=== PATIENT | male | born 1950 | race Caucasian/White ===

== ENCOUNTER 2018-02-04 13:35 | Observation (INO) | payer MEDICARE ==
[~2018-02-04] VITALS: Ht 165.1 cm; Wt 77.3 kg
[2018-02-04] MEDS ORDERED: DIPHENHYDRAMINE HCL 25 MG CAP ONE (14:47)
[2018-02-04] MEDS ORDERED: ALPRAZOLAM 0.5 MG TAB ONE (14:47)
[2018-02-04 14:59] VITALS: BP 167/82
[2018-02-04 15:00] LABS: BASOPHILS # (AUTO) 0.1 (0.0-0.1); BASOPHILS % 0.9 % (0.0-1.0); EOSINOPHILS # (AUTO) 0.2 (0.0-0.4); EOSINOPHILS % 1.9 % (0.0-6.0); HEMATOCRIT 43.3 % (38.2-49.6); LYMPHOCYTES % 23.1 % (18.0-39.1); MEAN CORPUSCULAR HEMOGLOBIN 31.1 pg (28-32); MEAN CORPUSCULAR HGB CONC 34.6 g/dL (31-35); MEAN CORPUSCULAR VOLUME 89.6 fL (81-99); MONOCYTES # (AUTO) 0.6 (0.2-0.8); MONOCYTES % 7.3 % (4.4-11.3); NEUTROPHILS # (AUTO) 5.6 (2.1-6.9); NEUTROPHILS % 66.4 % (38.7-80.0); PLATELET COUNT 225 x10e3/uL (140-360); RED BLOOD COUNT 4.83 x10e6/uL (4.3-5.7); RED CELL DISTRIBUTION WIDTH 13.1 % (11.7-14.4)
[2018-02-04 15:12] LABS: INR 0.88; PROTHROMBIN TIME 12.8 seconds (11.9-14.5)
[2018-02-04 15:18] LABS: ALANINE AMINOTRANSFERASE 37 IU/L (0-55); ALBUMIN 4.2 g/dL (3.5-5.0); ALBUMIN/GLOBULIN RATIO 1.2 (0.8-2.0); ALKALINE PHOSPHATASE 76 IU/L (40-150); ANION GAP 15.1 mmol/L (8-16); BLOOD UREA NITROGEN 11 mg/dL (7-26); BUN/CREATININE RATIO 13 (6-25); CALCIUM 9.9 mg/dL (8.4-10.2); CARBON DIOXIDE 24 mmol/L (22-29); CHLORIDE 101 mmol/L (98-107); CREATININE, SERUM 0.84 mg/dL (0.72-1.25); EST GLOMERULAR FILTRATION RATE > 60 ML/MIN (60-); GLUCOSE 96 mg/dL (74-118); POTASSIUM 4.1 mmol/L (3.5-5.1); SODIUM 136 mmol/L (136-145)
[2018-02-04] MEDS ORDERED: VERAPAMIL HCL 2.5 MG/ML 2 ML VIAL ONE (17:27)
[2018-02-04] MEDS ORDERED: FENTANYL CITRATE/PF 100MCG/2 ML INJ ONE (17:27)
[2018-02-04] MEDS ORDERED: MIDAZOLAM HCL 2 MG/2 ML VIAL ONE (17:27)
[2018-02-04] MEDS ORDERED: LIDOCAINE HCL 2% LOCAL 20 ML VIAL ONE (17:27)
[2018-02-04] MEDS ORDERED: IOPAMIDOL 370 MG/ML 200 ML INFUS..BTL INJ ONE ×2 (17:28→18:08)
[2018-02-04] MEDS ORDERED: SODIUM CHLORIDE 0.9% 1000ML 1,000 ML ONE (17:28)
[2018-02-04] MEDS ORDERED: HEPARIN SOD/SOD CHLORIDE 2,000 ML ONE (17:28)
[2018-02-04] MEDS ORDERED: EPTIFIBATIDE 10 ML ONE (18:11)
[2018-02-04] MEDS ORDERED: TICAGRELOR 90 MG TABLET ONE (18:14)
[2018-02-04] MEDS ORDERED: ASPIRIN 325 MG TAB ONE (18:24)
[2018-02-04] MEDS ORDERED: MORPHINE SULFATE 2 MG/ML SYR IV PRN (19:45)
[2018-02-04 20:00] VITALS: BP 131/66
[2018-02-04 20:07] VITALS: BP 167/82
--- NOTE | 2018-02-04 23:39 | Operative Report ---
DATE OF PROCEDURE: February 04, 2018 INDICATIONS: Coronary artery disease and unstable angina. PROCEDURES PERFORMED: 1. Left heart catheterization, selective coronary angiography. 2. Percutaneous transluminal coronary angioplasty and drug-eluting stent placement to the right coronary artery. 3. Deployment of right wrist transradial band. COMPLICATIONS: None. RECOMMENDATIONS: Dual antiplatelet therapy, staged intervention with atherectomy, and stent placement to the proximal left anterior descending artery. Access obtained in the right radial artery using ultrasound guidance. A 6-[place] sheath was placed. Diagnostic coronary angiogram revealed patent left main. Left anterior descending proximal 90%, mid 90%. Circumflex was small vessel, mild disease. Right coronary artery proximal 50%, mid and distal 80%. Right posterolateral artery, 1.5 mm, 70% stenosis. Decision was made to intervene on the right coronary artery. The patient received 8000 units of intravenous heparin and Integrilin as well as oral Brilinta for anticoagulation. The right coronary artery was cannulated using a JR4 6-[place] guiding catheter. A short Run-through wire was advanced across the lesion for support and pre-dilatation with 2.25 mm balloon was performed following which a single 3.0 x 34 mm Resolute [place] stent was deployed at 28 atmospheres. Excellent end result. Less than 10% residual stenosis. No complications. KEO-3 flow. Right wrist TR band applied. Patient observed in the hospital overnight, discharged home with recommendations for staged intervention in the left anterior descending artery. Job#: [id number] YAZMIN
[2018-02-05] VITALS: BP 143/73
--- NOTE | 2018-02-05 02:01 | NUR ---
Received patient from lab support service tech with TR band placed to right radial arm. Starting at 2029 I released 10 mL of air every 15 minutes till fully deflated. No bleeding noted. TR band was removed and a 2X2 was placed on the site covered in a tegaderm. As of 199 no bleeding noted from site. Capillary refill in right hand is immediate. Patient states no pain or discomfort.
[2018-02-05 05:09] VITALS: BP 136/70
[2018-02-05 05:22] LABS: BASOPHILS # (AUTO) 0.1 (0.0-0.1); BASOPHILS % 0.7 % (0.0-1.0); EOSINOPHILS # (AUTO) 0.2 (0.0-0.4); EOSINOPHILS % 2.5 % (0.0-6.0); HEMATOCRIT 43.3 % (38.2-49.6); HEMOGLOBIN 14.7 g/dL (14.0-18.0); LYMPHOCYTES # (AUTO) 1.5 (1.0-3.2); LYMPHOCYTES % 15.5 % (18.0-39.1); MEAN CORPUSCULAR HEMOGLOBIN 31.1 pg (28-32); MEAN CORPUSCULAR HGB CONC 33.9 g/dL (31-35); MEAN CORPUSCULAR VOLUME 91.5 fL (81-99); MONOCYTES # (AUTO) 0.7 (0.2-0.8); MONOCYTES % 7.1 % (4.4-11.3); NEUTROPHILS # (AUTO) 7.2 (2.1-6.9); NEUTROPHILS % 73.5 % (38.7-80.0); PLATELET COUNT 203 x10e3/uL (140-360); RED BLOOD COUNT 4.73 x10e6/uL (4.3-5.7); RED CELL DISTRIBUTION WIDTH 13.1 % (11.7-14.4)
[2018-02-05 05:49] LABS: ANION GAP 12.8 mmol/L (8-16); BLOOD UREA NITROGEN 12 mg/dL (7-26); BUN/CREATININE RATIO 13 (6-25); CALCIUM 9.3 mg/dL (8.4-10.2); CARBON DIOXIDE 25 mmol/L (22-29); CHLORIDE 104 mmol/L (98-107); CHOL/HDL RATIO 6.9 (3.9-4.7); CHOLESTEROL 193 MD/DL (0-199); CREATININE, SERUM 0.93 mg/dL (0.72-1.25); EST GLOMERULAR FILTRATION RATE > 60 ML/MIN (60-); GLUCOSE 101 mg/dL (74-118); HDL CHOLESTEROL 28 MG/DL (40-60); LDL CHOLESTEROL 110 MG/DL (60-130); POTASSIUM 4.8 mmol/L (3.5-5.1); SODIUM 137 mmol/L (136-145); TRIGLYCERIDES 276 MG/DL (0-149)
[2018-02-05 08:15] VITALS: BP 133/74
[2018-02-05] MEDS ORDERED: METOPROLOL SUCCINATE 25 MG TAB XL PO SCH (09:00)
[2018-02-05] MEDS ORDERED: TICAGRELOR 90 MG TABLET PO SCH (09:00)
[2018-02-05] MEDS ORDERED: ASPIRIN 325 MG TAB PO SCH (09:00)
--- NOTE | 2018-02-05 11:00 | NUR ---
MD AGEE, PT REQUESTING TO GO HOME STATES HE WAS ONLY SUPPOSE TO BE HERE ONE NIGHT AWAITING CALL BACK.
[2018-02-05 12:00] VITALS: BP 154/74
--- NOTE | 2018-02-05 14:38 | NUR ---
IV DC'D SECURED WITH 4X4 GAUZE AND TAPE. RX GIVEN EDUCATION AND F/U INSTRUCTIONS. PT DISCHARGED AT THIS TIME
[2018-02-05] MEDS ORDERED: ATORVASTATIN 20 MG TAB PO SCH (21:00)
[2018-02-25] MEDS ORDERED: BRILINTA90 MG PO (17:17)
[2018-02-25] MEDS ORDERED: CENTRUM SILVER1 EAC3 PO (17:17)
[2018-02-25] MEDS ORDERED: ACETAMINOPHEN325 M1 PO (17:17)
[2018-02-25] MEDS ORDERED: ATORVASTATIN CA40 MG PO (17:17)
[2018-02-25] MEDS ORDERED: METOPROLOL PO (17:17)
[2018-02-25] MEDS ORDERED: ASPIR 8181 MG PO (17:17)
== END 2018-02-05 14:39 | disposition home or self-care (01) ==
LOC: CATH LAB 13:35 → IMCU 18:29 → INTOOBSV 18:29 → IMCU 19:34
PROVIDERS: ADMIT Internal Medicine Interventional Cardiology; ATTEND Internal Medicine Interventional Cardiology
DX: I25.110 Atherosclerotic heart disease of native coronary artery with unstable angina pectoris (principal)
CPT/HCPCS: 36415 ×2; 80048; 80053; 80061; 85025 ×2; 85610; 92928; 93458; C1769; C1874; C1887; G0378 ×2; J1327; J2001; J2250; J2270; J7030; Q9967; 93454

== ENCOUNTER 2018-03-04 11:21 | Inpatient (IN) | payer MEDICARE ==
[~2018-03-04] VITALS: Ht 165.1 cm; Wt 78.7 kg
[2018-03-04] VITALS (8 sets, daily range): BP systolic 115–138; BP diastolic 50–75
[~2018-03-04 11:21] MED LIST: ACETAMINOPHEN325 M1 PO; ASPIR 8181 MG PO; ATORVASTATIN CA40 MG PO; BRILINTA90 MG PO; CENTRUM SILVER1 EAC3 PO; METOPROLOL PO
[2018-03-04] MEDS ORDERED: VERAPAMIL HCL 2.5 MG/ML 2 ML VIAL ONE (14:52)
[2018-03-04] MEDS ORDERED: SODIUM CHLORIDE 0.9% 1000ML 1,000 ML ONE ×2 (14:53→14:56)
[2018-03-04] MEDS ORDERED: HEPARIN SOD/SOD CHLORIDE 2,000 ML ONE (14:53)
[2018-03-04] MEDS ORDERED: FENTANYL CITRATE/PF 100MCG/2 ML INJ ONE ×2 (14:53→16:38)
[2018-03-04] MEDS ORDERED: IOPAMIDOL 370 MG/ML 200 ML INFUS..BTL INJ ONE (14:53)
[2018-03-04] MEDS ORDERED: LIDOCAINE HCL 1% LOCAL INJ 20 ML VIAL ONE (14:53)
[2018-03-04] MEDS ORDERED: MIDAZOLAM HCL 2 MG/2 ML VIAL ONE ×2 (14:53→16:01)
[2018-03-04] MEDS ORDERED: HEPARIN SOD (PORCINE) 1000 UNIT/ML 30ML ONE (16:04)
[2018-03-04] MEDS ORDERED: NITROGLYCERIN/D5W 200 MCG/ML 250 ML ONE (16:04)
[2018-03-04] MEDS ORDERED: ONDANSETRON HCL INJ 2MG/ML 2ML 2 MG/ML VIAL ONE (16:28)
[2018-03-04] MEDS ORDERED: ATROPINE SULFATE 0.1 MG/ML 10ML SYR ONE (16:29)
[2018-03-04] MEDS ORDERED: ONDANSETRON HCL INJ 2MG/ML 2ML 2 MG/ML VIAL IV PRN (18:30)
[2018-03-04] MEDS: SODIUM CHLORIDE 0.9% 1000ML 1,000 ML IV SCH ×2 (19:00→22:34)
[2018-03-04] MEDS: MORPHINE SULFATE INJ 4 MG/ML INJ 1ML IV PRN (23:12)
--- NOTE | 2018-03-04 23:26 | Operative Report ---
DATE OF PROCEDURE: March 04, 2018 CARDIAC CATHETERIZATION REPORT INDICATION FOR PROCEDURE: Known severe CAD of the proximal and mid LAD, unstable angina. This is a staged PCI. PREPROCEDURE ASSESSMENT: Patient's medical history, social history, previous experience with anesthesia were reviewed prior to procedure. Patient was deemed to be an appropriate candidate for moderate sedation. The risks, the benefits, and alternatives of the procedure were explained prior to the procedure and informed consent was obtained as documented in the medical record. PROCEDURES PERFORMED: 1. Coronary angiography. 2. Atherectomy of the proximal and mid left anterior descending artery with Diamondback CSI device. 3. Percutaneous coronary intervention of the proximal and mid left anterior descending artery with Synergy 3.0 x 20 mm drug-eluting stent. PROCEDURE DETAILS: Patient was brought to the cardiac catheterization laboratory in a fasting state. Right wrist was prepped and draped in a sterile fashion. A 6-[place] slender sheath was inserted into the right radial artery using modified Seldinger technique for planned intervention of the LAD. A 6-[place] XB 3.5 guide was used, which provided excellent support. Lesion was wired using ChoICE PT floppy guidewire. This wire was then exchanged for a ViperWire 2.0 x 15 mm over the wire balloon. Atherectomy was performed using Diamondback 360 Coronary CSI device. This resulted in significant angiographic improvement of the calcified proximal and mid LAD lesions. Balloon angioplasty was subsequently performed using a 2.5 x 15 mm compliant balloon deployed at 14 atmospheres. Stenting was performed using a Synergy 3.0 x 20 mm drug-eluting stent. Multiple orthogonal views were taken to ensure that the stent did not extend into the left main coronary artery. This resulted in excellent angiographic result with no significant residual thrombus, dissection, or spasm. Case ended without any complications. SIGNIFICANT FINDINGS: 90% lesion of the proximal and mid LAD, severely calcified, status post successful atherectomy and PCI of the proximal LAD with drug-eluting stent x1. ESTIMATED BLOOD LOSS: 50 mL. COMPLICATIONS: None. SPECIMEN REMOVED: None. IMPLANTS: Drug-eluting stent x1 as described above. FINAL RECOMMENDATIONS: 1. Continue dual antiplatelet therapy with aspirin 81 mg and ticagrelor 90 mg b.i.d. for at least 1 year or preferably longer, followed by aspirin 81 mg daily for life. 2. Continue optimal medical therapy and risk factor control. 3. Follow up with primary software administrator in clinic 1 week post discharge. Job#: [id number]
[2018-03-05] VITALS (21 sets, daily range): BP systolic 109–146; BP diastolic 50–67
--- NOTE | 2018-03-05 01:52 | Consultation ---
DATE OF CONSULTATION: March 04, 2018 CARDIOLOGY CONSULT NOTE CHIEF COMPLAINT: Chest pain. HISTORY OF PRESENT ILLNESS: Patient is a 67-year-old male with known coronary artery disease, who presented as an outpatient today for planned intervention and atherectomy of proximal and mid left anterior descending artery. Patient underwent the procedure and tolerated the procedure well. He is admitted to the ICU for postprocedure care. PAST MEDICAL HISTORY: Hypertension, hyperlipidemia, coronary artery disease. PAST SURGICAL HISTORY: No significant past surgical history. FAMILY HISTORY: No family history of early CAD or sudden cardiac . SOCIAL HISTORY: Patient does not smoke, drink, or abuse drugs. REVIEW OF SYSTEMS: As per HPI, otherwise negative. OBJECTIVE: VITAL SIGNS: Temperature 98.6, pulse 61, respiratory rate 16, blood pressure 138/75, satting 97% on room air. GENERAL: Well developed, well nourished white man, in no acute distress. CARDIOVASCULAR: Regular rate and rhythm. No murmurs, rubs, or gallops. Palpable carotid pulses. Palpable radial pulses. LUNGS: Clear to auscultation bilaterally. ABDOMEN: Soft, nontender, nondistended. NEURO AND PSYCH: Alert and oriented to person, place, and time. Normal affect. INPATIENT MEDICATIONS: Reviewed. LABORATORY DATA: Reviewed. IMAGING DATA: Reviewed. ASSESSMENT AND PLAN: 1. Coronary artery disease, status post atherectomy and percutaneous coronary intervention to left anterior descending artery on March 04, 2018. 2. History of percutaneous coronary intervention to the right coronary artery. PLAN: Continue dual antiplatelet therapy with aspirin 81 mg daily and ticagrelor 90 mg p.o. b.i.d. Continue other cardiovascular medications otherwise. Plan for discharge tomorrow if patient is feeling better. Thank you for this consult. Will continue to follow. Job#: [id number]
[2018-03-05] MEDS: MORPHINE SULFATE INJ 4 MG/ML INJ 1ML IV PRN (04:42)
[2018-03-05 05:02] LABS: BASOPHILS # (AUTO) 0.1 (0.0-0.1); BASOPHILS % 0.5 % (0.0-1.0); EOSINOPHILS # (AUTO) 0.1 (0.0-0.4); EOSINOPHILS % 1.1 % (0.0-6.0); HEMATOCRIT 39.7 % (38.2-49.6); HEMOGLOBIN 13.2 g/dL (14.0-18.0); LYMPHOCYTES # (AUTO) 1.5 (1.0-3.2); LYMPHOCYTES % 12.3 % (18.0-39.1); MEAN CORPUSCULAR HEMOGLOBIN 30.5 pg (28-32); MEAN CORPUSCULAR HGB CONC 33.2 g/dL (31-35); MEAN CORPUSCULAR VOLUME 91.7 fL (81-99); MONOCYTES # (AUTO) 0.9 (0.2-0.8); MONOCYTES % 7.3 % (4.4-11.3); NEUTROPHILS # (AUTO) 9.7 (2.1-6.9); NEUTROPHILS % 78.2 % (38.7-80.0); PLATELET COUNT 207 x10e3/uL (140-360); RED BLOOD COUNT 4.33 x10e6/uL (4.3-5.7); RED CELL DISTRIBUTION WIDTH 13.2 % (11.7-14.4)
[2018-03-05 05:15] LABS: ANION GAP 13.3 mmol/L (8-16); BLOOD UREA NITROGEN 14 mg/dL (7-26); BUN/CREATININE RATIO 18 (6-25); CALCIUM 8.7 mg/dL (8.4-10.2); CARBON DIOXIDE 23 mmol/L (22-29); CHLORIDE 104 mmol/L (98-107); CREATININE, SERUM 0.78 mg/dL (0.72-1.25); EST GLOMERULAR FILTRATION RATE > 60 ML/MIN (60-); GLUCOSE 104 mg/dL (74-118); POTASSIUM 4.3 mmol/L (3.5-5.1); SODIUM 136 mmol/L (136-145)
--- NOTE | 2018-03-05 06:55 | NUR ---
TR band removed from R wrist at 2300. No signs of acute bleeding or hematoma noted. Will continue to monitor.
[2018-03-05] MEDS ORDERED: TICAGRELOR 90 MG TABLET PO SCH (09:00)
[2018-03-05] MEDS ORDERED: ASPIRIN 81 MG CHEW TAB PO SCH (09:00)
--- NOTE | 2018-03-05 10:47 | NUR ---
RECEIVED CALL FROM JOSÉ LUIS Parker REGARDING OBS ORDER CANCELLED. CALL AND SPOKE W BEDSIDE NURSE. STATES SHE WILL ENTER INPATIENT ORDER.
[2018-03-05] MEDS: SODIUM CHLORIDE 0.9% 1000ML 1,000 ML IV SCH (14:30)
--- NOTE | 2018-03-05 16:42 | NUR ---
IMM EXPLAINED, SIGNED AND ON CHART
--- NOTE | 2018-03-05 20:00 | NUR ---
Pt forgot Stent information card and copy of cardiac cath map, called to request. Pt informed that they will be in limehouse worker office, given to Tran PEREZ.
== END 2018-03-05 16:59 | disposition home or self-care (01) | DRG 247 ==
LOC: CATH LAB 11:21 → CATH LAB V 16:28 → ICU 17:40
PROVIDERS: ADMIT Internal Medicine Interventional Cardiology; ATTEND Internal Medicine Interventional Cardiology
PROC: 027034Z Dilation of Coronary Artery, One Artery with Drug-eluting Intraluminal Device, Percutaneous Approach (ICD-10-PCS; principal; 2018-03-04)
PROC: 02C03ZZ Extirpation of Matter from Coronary Artery, One Artery, Percutaneous Approach (ICD-10-PCS; 2018-03-04)
DX: I25.110 Atherosclerotic heart disease of native coronary artery with unstable angina pectoris (principal); I73.9 Peripheral vascular disease, unspecified; R09.89 Other specified symptoms and signs involving the circulatory and respiratory systems; Z82.49 Family history of ischemic heart disease and other diseases of the circulatory system; Z83.3 Family history of diabetes mellitus; Z79.82 Long term (current) use of aspirin; I10 Essential (primary) hypertension; E78.5 Hyperlipidemia, unspecified
CPT/HCPCS: 36415; 80048; 85025; 92924; 92928; 93005; C1724; C1769; C1874; J1644; J2001; J2250; J2270; J2405; J7030; Q9967